=== PATIENT | male | born 1985 | race Caucasian/White ===

== ENCOUNTER 2016-04-30 21:28 | Emergency (ER) | payer SELFPAY ==
[~2016-04-30] VITALS: Ht 170.2 cm; Wt 104.3 kg
[2016-04-30] MEDS ORDERED: SERTRALINE HCL 50 MG TABLET (21:43)
[2016-04-30] MEDS ORDERED: VENTOLIN HFA 90 MCG INHALER (21:43)
[2016-04-30] MEDS ORDERED: QUETIAPINE FUMARATE 300 MG TAB (21:43)
[2016-04-30] MEDS ORDERED: METFORMIN (21:44)
[2016-04-30] MEDS ORDERED: LORAZEPAM 0.5 MG TABLET PO ONE (22:00)
[2016-04-30] MEDS ORDERED: LORAZEPAM 1 MG TABLET ONE (22:05)
--- NOTE | 2016-04-30 23:02 | NUR ---
Patient eloped from facility. ER physician notified.
== END 2016-04-30 23:04 | disposition left against medical advice (07) ==
LOC: ER 21:28
DX: F41.9 Anxiety disorder, unspecified (principal); F15.10 Other stimulant abuse, uncomplicated; J45.909 Unspecified asthma, uncomplicated; F20.9 Schizophrenia, unspecified; E11.9 Type 2 diabetes mellitus without complications; F10.20 Alcohol dependence, uncomplicated; Z79.84 Long term (current) use of oral hypoglycemic drugs
CPT/HCPCS: 93005; A4663